=== PATIENT | female | born 1955 | race Caucasian/White ===

== ENCOUNTER 2017-08-22 10:42 | Emergency (ER) | payer MEDICARE, OTHER ==
--- NOTE | 2017-08-22 11:12 | ED ---
Head Injury - HPI Summary HPI Summary: A 61 y/o female presents to ED s/p head injury. Additionally c/o left shoulder pain (black and blue color) and laceration on head. According to the patient, she was in bed when she got up to grab her phone. She accidentally tripped over her dog and hit her head on the bench of the bed. She denies any LOC or abdominal pain, however has a severe headache. Upon arrival to ED, the headache reached 6/10 in severity, however is creeping up to a 8-9/10. The headache is "pretty much all over", especially on the frontal top and back area. She noted that she is on no blood thinners, but is known to bleed a lot due to undergoing radiation and chemotherapy. It was emphasized that the incident was purely a trip, not a fall from a faint. The patient has a hard time walking. As per triage, "Pt didn't want to drive while bleeding all over. Called daughter this morning do to nausea and severe head pain. Every time pt gets up nausea and light gets worse. Pt states blurred vision as well. Called daughter at 0846 today to report the fall". PMHx of lymphoma, high blood pressure, DM (however, under control) and cellulitis. The patient took a couple Advil CROP PULLER. - History Of Current Complaint Chief Complaint: EDHeadInjury Stated Complaint: FALL/HEAD LAC Time Seen by Provider: 08/22/17 10:52 Hx Obtained From: Patient Mechanism Of Injury: Other - Tripped over dog, hit head on bench of bed. Onset/Duration: Started Hours Ago, Still Present, Worse Since - Earlier today Onset of Pain: Immediate Severity Currently: Moderate - 8/10, was 6/10 upon arrival Severity Initially: Severe Pain Intensity: 8 Pain Scale Used: 0-10 Numeric Location of Head Injury: Frontal - Frontal and top, Occipital - Back area Aggravating Factor(s): Other: - Light makes worse as per triage Alleviating Factor(s): Other: - NOTHING Associated Signs And Symptoms: Nausea - As per triage, Headache - 8/10, Visual Changes - Blurred vision as per triage - Allergies/Home Medications Allergies/Adverse Reactions: Allergies Allergy/AdvReac Type Severity Reaction Status Date / Time cortisone Allergy Severe Difficulty Verified 08/22/17 11:07 Breathing Home Medications: Home Medications Chlorthalidone 25 mg PO DAILY 08/22/17 [History Confirmed 08/22/17] Pantoprazole Sodium [Protonix] 40 mg PO DAILY 08/22/17 [History Confirmed ] PMH/Surg Hx/FS Hx/Imm Hx Endocrine/Hematology History: Reports: Hx Anticoagulant Therapy, Hx Diabetes Denies: Hx Systemic Lupus Erythematosus Cardiovascular History: Reports: Hx Hypertension Denies: Hx Congestive Heart Failure Respiratory History: Reports: Hx Asthma, Hx Sleep Apnea - new DX 09/2012 GI History: Reports: Hx Gastroesophageal Reflux Disease, Other GI Disorders - hep c History: Denies: Hx Acute Renal Failure, Hx Dialysis, Hx Renal Disease Musculoskeletal History: Reports: Hx Arthritis, Hx Rheumatoid Arthritis, Hx Back Problems Denies: Hx Osteoporosis Sensory History: Reports: Hx Contacts or Glasses - READNG Opthamlomology History: Reports: Hx Contacts or Glasses - READNG Psychiatric History: Reports: Hx Anxiety - WITH PAIN - Cancer History Cancer Type, Location and Year: lymphoma Hx Chemotherapy: Yes - LYMPHOMA Hx Radiation Therapy: Yes - LYMPHOMA to sternum 2014 - Surgical History Surgery Procedure, Year, and Place: tubal, cyst removed L breast Hx Anesthesia Reactions: No Infectious Disease History: No Infectious Disease History: Denies: Traveled Outside the [place] in Last 30 Days - Family History Known Family History: Positive: Hypertension, Diabetes, Other - Lung cancer ( mother and brother) and bone cancer (father) - Social History Alcohol Use: Daily Substance Use Type: Reports: None Smoking Status (MU): Former Smoker Type: Cigarettes Review of Systems Negative: Fever Positive: Photophobia, Blurred Vision Positive: Nausea. Negative: Abdominal Pain Positive: Headache - 8/10. Negative: Syncope All Other Systems Reviewed And Are Negative: Yes Physical Exam - Summary Physical Exam Summary: GENERAL: Patient is a well developed and nourished female who is lying comfortable in the stretcher. Patient is not in any acute respiratory distress. HEAD AND FACE: Normocephalic. Superficial laceration in occipital area EYES: PERRLA, EOMI x 2. EARS: Hearing grossly intact. MOUTH: Oropharynx within normal limits. NECK: Supple, trachea is midline, no adenopathy, no JVD, no carotid bruit. CHEST: Symmetric, no tenderness at palpation LUNGS: Clear to auscultation bilaterally. No wheezing or crackles. CVS: Regular rate and rhythm, S1 and S2 present, no murmurs or gallops appreciated. ABDOMEN: Soft, non-tender. Bowel sounds are normal. No abdominal abnormal pulsations. EXTREMITIES: Full ROM in all major joints, no edema, no cyanosis or clubbing. NEURO: Alert and oriented x 3. No acute neurological deficits. Speech is normal and follows commands. SKIN: Dry and warm. Superficial laceration in occipital area. Abrasion on left shoulder GCS: 15 Triage Information Reviewed: Yes Vital Signs On Initial Exam: Initial Vitals Temp Pulse Resp BP Pulse Ox 98.2 F 69 18 164/101 97 08/22/17 10:46 08/22/17 10:46 08/22/17 10:46 08/22/17 10:46 08/22/17 10:46 Vital Signs Reviewed: Yes Diagnostics - Vital Signs Vital Signs Temp Pulse Resp BP Pulse Ox 08/22/17 10:46 98.2 F 69 18 164/101 97 - Laboratory Lab Statement: Any lab studies that have been ordered have been reviewed, and results considered in the medical decision making process. - Radiology SHOULDER XR Radiology Interpretation Completed By: Radiologist - DEGENERATIVE CHANGES WITHOUT RADIOGRAPHICALLY APPARENT ACUTE FRACTURE OR DISLOCATION. If the patient' s symptoms persist, follow-up imaging is recommended. ED physician reviewed this radiology report. - CT BRAIN CT CT Interpretation: No Acute Changes CT Interpretation Completed By: Radiologist - No acute intracranial abnormality. ED physician reviewed this radiology report. Head Injury Course/Dx Course Of Treatment: A 61 y/o female presents to ED s/p head injury. Additionally c/o left shoulder pain (black and blue color) and laceration on head. According to the patient, she was in bed when she got up to grab her phone. She accidentally tripped over her dog and hit her head on the bench of the bed. She denies any LOC or abdominal pain, however has a severe headache. A shoulder XR revealed degenerative changes without radiographically apparent acute fracture or dislocation. A Brain CT revealed no acute intracranial abnormality. In the ED course, patient received Zofran and Percocet. Patient will be discharged with with a diagnosis of head injury. Patient is to follow up with PCP in 2-3 days. Pt is agreeable with this plan. - Diagnoses Provider Diagnoses: Head injury Discharge - Sign-Out/Discharge Documenting (check all that apply): Patient Departure - DISCHARGE - Discharge Plan Condition: Stable Disposition: HOME Patient Education Materials: Head Injury (ED) Referrals: Gris Carvajal MD [Primary Care Provider] - 2 Days (Follow up with PCP in 2- 3 days.) Additional Instructions: RETURN TO ED FOR ANY NEW OR WORSENING SYMPTOMS. - Billing Disposition and Condition Condition: STABLE Disposition: Home
[2017-08-22] MEDS ORDERED: oxyCODONE/Acetamin 5/325 MG* TAB PO ONE (11:20)
--- NOTE | 2017-08-22 11:55 | RAD ---
INDICATION: Left shoulder pain after a fall the previous night COMPARISON: None. TECHNIQUE: 4 views of the left shoulder were obtained. FINDINGS: The adequately corticated bones are in normal alignment. Joint spaces appear maintained. Degenerative changes include osteophyte formation along the inferior margin of the glenohumeral joint. No fracture, dislocation or focal bony abnormality is seen. IMPRESSION: DEGENERATIVE CHANGES WITHOUT RADIOGRAPHICALLY APPARENT ACUTE FRACTURE OR DISLOCATION. If the patient's symptoms persist, follow-up imaging is recommended.
--- NOTE | 2017-08-22 12:03 | RAD ---
INDICATION: Nausea, blurred vision and feeling lightheaded after head trauma COMPARISON: CT of the brain dated August 29, 2013 TECHNIQUE: Contiguous axial sections of the brain were obtained from the skull base to the vertex without contrast. FINDINGS: The ventricles, cisterns and sulci are within normal limits. The hinojosa-white matter differentiation is adequately maintained and there is no sulcal effacement. No significant focal abnormality or mass effect is present. There is no evidence for intracranial hemorrhage. No significant focal osseous abnormality is present. Incidentally noted is a mild degree of hyperostosis frontalis interna. The visualized portion of the paranasal sinuses appear clear. The mastoid air cells are well aerated bilaterally. IMPRESSION: No acute intracranial abnormality.
[2017-08-22 12:24] VITALS: BP 144/83
[2017-08-22] MEDS ORDERED: Ondansetron ODT TAB* 4 MG SL ONE (12:32)
== END 2017-08-22 12:50 | disposition home or self-care (01) ==
LOC: ED 10:42
DX: S09.90XA Unspecified injury of head, initial encounter (principal); S01.01XA Laceration without foreign body of scalp, initial encounter; S40.212A Abrasion of left shoulder, initial encounter; W01.198A Fall on same level from slipping, tripping and stumbling with subsequent striking against other object, initial encounter; Y93.9 Activity, unspecified; Y92.003 Bedroom of unspecified non-institutional (private) residence as the place of occurrence of the external cause; M19.012 Primary osteoarthritis, left shoulder; R11.0 Nausea; E11.9 Type 2 diabetes mellitus without complications; Z79.01 Long term (current) use of anticoagulants; I10 Essential (primary) hypertension; J45.909 Unspecified asthma, uncomplicated; G47.30 Sleep apnea, unspecified; K21.9 Gastro-esophageal reflux disease without esophagitis; M06.9 Rheumatoid arthritis, unspecified; F41.9 Anxiety disorder, unspecified; Z85.72 Personal history of non-Hodgkin lymphomas; Z88.8 Allergy status to other drugs, medicaments and biological substances; Z82.49 Family history of ischemic heart disease and other diseases of the circulatory system; Z83.3 Family history of diabetes mellitus; Z80.1 Family history of malignant neoplasm of trachea, bronchus and lung; Z80.8 Family history of malignant neoplasm of other organs or systems; Z87.891 Personal history of nicotine dependence
CPT/HCPCS: 70450; 99282; A9270-GY

== ENCOUNTER → 2017-12-12 20:11 | Emergency (ER) | payer MEDICARE, OTHER ==
[2017-12-12 20:20] VITALS: BP 164/105
== END | disposition left against medical advice (07) ==
LOC: ED 20:11
DX: R10.9 Unspecified abdominal pain (principal); Z53.21 Procedure and treatment not carried out due to patient leaving prior to being seen by health care provider

== ENCOUNTER 2018-03-11 16:59 | Emergency (ER) | payer MEDICARE, OTHER ==
[2018-03-11] MEDS ORDERED: LORazepam INJ* 2 MG/ML 1 ML VIAL ONE (17:13)
[2018-03-11] MEDS ORDERED: LORazepam INJ* 2 MG/ML 1 ML VIAL IV PUSH ONE (17:14)
[2018-03-11] MEDS ORDERED: HYDROmorphone INJ* 1 MG/ML CARPUJECT SYRINGE IV SLOW PU ONE (17:14)
[2018-03-11] MEDS ORDERED: HYDROmorphone INJ1* 1 MG/ML SYRINGE ONE (17:14)
[2018-03-11] MEDS ORDERED: NS 0.9% 1000 ML** 1,000 ML IV ONE ×2 (17:14→19:24)
--- NOTE | 2018-03-11 17:39 | ED ---
Abdominal Pain/Female - HPI Summary HPI Summary: A 62 y/o female presents to [facility] with a chief complaint of abdominal pain since 10:00 03/11/18. She denies fever, chills, erythema (eyes), sore throat, chest pain, shortness of breath, cough, vomiting, nausea, dysuria, hematuria , myalgia, edema, rash and dizziness. She claims that she has been unable to urinate or have a BM. Per triage note, "Pt c/o sudden oset of abdominal pain at 1000 this morning got worse throughout the day, not unbearable ..pt is screaming in triage. thet pain radiates to her right flank. " At triage she rated her pain as a 10/10 in severity. She was diagnosed with cancer 5 years ago. She denies any falls or trauma. She denies a Hx of aneurysms of FHx of aneurysms. Dr. Carvajal is her PCP. - History of Current Complaint Chief Complaint: EDAbdPain Stated Complaint: SEVERE ABD PAIN Hx Obtained From: Patient, Family/[employer]der [employer] Onset/Duration: Sudden Onset, Lasting Hours, Still Present Timing: Hours Severity Initially: Severe Severity Currently: Severe Pain Intensity: 10 Pain Scale Used: 0-10 Numeric Location: Diffuse Radiates: No Character: Sharp Aggravating Factor(s): Nothing Alleviating Factor(s): Nothing Associated Signs and Symptoms: Positive: Other:. Negative: Fever, Cough, Chest Pain, Dizzy, Nausea, Vomiting - Positive: unable to urinate or have a BM Allergies/Adverse Reactions: Allergies Allergy/AdvReac Type Severity Reaction Status Date / Time cortisone Allergy Severe Difficulty Verified 03/11/18 17:15 Breathing PMH/Surg Hx/FS Hx/Imm Hx Endocrine/Hematology History: Reports: Hx Anticoagulant Therapy, Hx Diabetes Denies: Hx Systemic Lupus Erythematosus Cardiovascular History: Reports: Hx Hypertension Denies: Hx Congestive Heart Failure Respiratory History: Reports: Hx Asthma, Hx Sleep Apnea - new DX 09/2012 GI History: Reports: Hx Gastroesophageal Reflux Disease, Other GI Disorders - hep c History: Denies: Hx Acute Renal Failure, Hx Dialysis, Hx Renal Disease Musculoskeletal History: Reports: Hx Arthritis, Hx Rheumatoid Arthritis, Hx Back Problems Denies: Hx Osteoporosis Sensory History: Reports: Hx Contacts or Glasses - READNG Opthamlomology History: Reports: Hx Contacts or Glasses - READNG Psychiatric History: Reports: Hx Anxiety - WITH PAIN - Cancer History Cancer Type, Location and Year: lymphoma Hx Chemotherapy: Yes - LYMPHOMA Hx Radiation Therapy: Yes - LYMPHOMA to sternum 2014 - Surgical History Surgery Procedure, Year, and Place: tubal, cyst removed L breast Hx Anesthesia Reactions: No Infectious Disease History: No Infectious Disease History: Denies: Traveled Outside the [place] in Last 30 Days - Family History Known Family History: Positive: Hypertension, Diabetes, Other - Lung cancer ( mother and brother) and bone cancer (father) - Social History Alcohol Use: Daily Substance Use Type: Reports: None Smoking Status (MU): Former Smoker Type: Cigarettes Review of Systems Negative: Fever, Chills Negative: Erythema Negative: Sore Throat Negative: Chest Pain Negative: Shortness Of Breath, Cough Positive: Abdominal Pain, Other - Positive: unable to urinate or have a BM. Negative: Vomiting, Nausea Negative: dysuria, hematuria Negative: Myalgia, Edema Negative: Rash Neurological: Negative - dizziness All Other Systems Reviewed And Are Negative: Yes Physical Exam - Summary Physical Exam Summary: Constitutional: Well-developed, Well-nourished, Alert. (-) Distressed Skin: Warm, Dry HENT: Normocephalic; Atraumatic Eyes: Conjunctiva normal Neck: Musculoskeletal ROM normal neck. (-) JVD, (-) Stridor, (-) Tracheal deviation Cardio: Rhythm regular, rate normal, Heart sounds normal; Intact distal pulses; The pedal pulses are 2+ and symmetric. Radial pulses are 2+ and symmetric. (-) Murmur Pulmonary/Chest wall: Effort normal. (-) Respiratory distress, (-) Wheezes, (-) Rales Abd: no CVA tenderness, diffuse abdominal tenderness, obese abdomen. Soft, (-) Distension, (-) Guarding, (-) Rebound Musculoskeletal: (-) Edema Lymph: (-) Cervical adenopathy Neuro: Alert, Oriented x3 Psych: Mood and affect Normal Triage Information Reviewed: Yes Vital Signs On Initial Exam: Initial Vitals Temp Pulse Resp BP Pulse Ox 98 F 71 24 168/85 98 03/11/18 17:11 03/11/18 17:11 03/11/18 17:11 03/11/18 17:11 03/11/18 17:11 Vital Signs Reviewed: Yes Diagnostics - Vital Signs Vital Signs Temp Pulse Resp BP Pulse Ox 03/11/18 17:17 20 03/11/18 17:11 98 F 71 24 168/85 98 - Laboratory Result Diagrams: 03/11/18 17:30 03/11/18 17:30 Lab Statement: Any lab studies that have been ordered have been reviewed, and results considered in the medical decision making process. - CT abdomen/pelvis CT Interpretation Completed By: Radiologist Summary of CT Findings: 1. There may be a small hiatal hernia. 2. The appendix is unremarkable. 3. There is mild colonic diverticulosis without evidence for acute. diverticulitis. 4. There is an umbilical hernia with hernia sac measuring 3.1 cm diameter which. contains a short segment of small bowel as well as fluid in the hernia sac but. no resulting small bowel obstruction therefore findings are not specific for. incarcerated hernia. 5. No visible renal, ureteral or bladder calculi. ED physician has reviewed this imaging report. - EKG 17:16 Cardiac Rate: NL - 64 bpm EKG Rhythm: Sinus Rhythm Summary of EKG Findings: Normal sinus rhythm at 64 bpm. No STEMI. Re-Evaluation - Re-Evaluation First Eval Re-Evaluation Time: 18:58 Change: Improved Comment: Her pain is now reduced to 2/10. I Palpated her hernia and her pain is now midline and periumbilical. She has had pain half a dozen times in the past month. This is most likely due to a recurring hernia. Second Eval Re-Evaluation Time: 21:00 Change: Improved Comment: patient is ready for discharge. Abdominal Pain Fem Course/Dx - Course Course Of Treatment: A 62 y/o female presents to [facility] with a chief complaint of abdominal pain since 10:00 03/11/18. The physical exam showed no CVA tenderness, but she had diffuse abdominal tenderness and an obese abdomen. EKG at 17:16 revealed normal sinus rhythm at [address] abdomen/pelvis impression: 1. There may be a small hiatal hernia. 2. The appendix is unremarkable. 3. There is mild colonic diverticulosis without evidence for acute. diverticulitis. 4. There is an umbilical hernia with hernia sac measuring 3.1 cm diameter which. contains a short segment of small bowel as well as fluid in the hernia sac but. no resulting small bowel obstruction therefore findings are not specific for. incarcerated hernia. 5. No visible renal, ureteral or bladder calculi. Upon re-eval, her pain is now reduced to 2/10. I Palpated her hernia and her pain is now midline and periumbilical. She has had pain half a dozen times in the past month. This is most likely due to a recurring hernia. Lab results obtained. Trace urine ketones. In the ED course the patient was given Zofran IV, Reglan IV, Ativan IV and Dilaudid IV. The patient will be discharged with a prescription for [place] and Zofran. She was instructed to follow up with Dr. Russell. She is agreeable with this plan. - Diagnoses Provider Diagnoses: Umbilical hernia, Abdominal pain Discharge - Sign-Out/Discharge Documenting (check all that apply): Patient Departure - DC Patient Received Moderate/Deep Sedation with Procedure: No - Discharge Plan Condition: Stable Disposition: HOME Prescriptions: HYDROcodone/ACETAMIN 5-325 MG* [[place] 5-325 TAB*] 1 tab PO Q6H PRN #10 tab MDD 4 PRN Reason: Pain Scale 6-10 Ondansetron ODT TAB* [Zofran 4 MG Odt TAB*] 4 mg PO Q8H PRN #12 tab.odt PRN Reason: Nausea/Vomiting Referrals: Gris Carvajal MD [Primary Care Provider] - Kishan Russell MD [Medical Doctor] - (3-5 days) Additional Instructions: Return to the ED if you experience any new or worsening symptoms. - Billing Disposition and Condition Condition: STABLE Disposition: Home - Attestation Statements Document Initiated by Filiberto: Yes Documenting Scribe: Martin Ojeda Provider For Whom Filiberto is Documenting (Include Credential): Yusef Mai MD Scribe Attestation: I, Martin Ojeda, scribed for Yusef Mai MD on 03/11/18 at 2223. Scribe Documentation Reviewed: Yes Provider Attestation: The documentation as recorded by the Martin mcdaniels accurately reflects the service I personally performed and the decisions made by me, Yusef Mai MD Status of Scribe Document: Viewed
[2018-03-11 17:40] LABS: ABS Basophils 0 10^3/ul (0-0.2); ABS Eosinophils 0 10^3/ul (0-0.6); ABS Monocytes 0.4 10^3/ul (0-0.8); ABS Neutrophils 5.6 10^3/ul (1.5-7.7); ABS Nucleated RBC 0 10^3/ul; Eosinophil % 0.4 %; Hematocrit 40 % (35-47); Hemoglobin 13.2 g/dl (12.0-16.0); Lymphocyte % 14.1 %; Mean Corpuscular HGB Conc 34 g/dl (31-36); Mean Corpuscular Hemoglobin 31 pg (27-31); Mean Corpuscular Volume 93 fL (80-97); Mean Platelet Volume 8.4 fL (7.4-10.4); Nucleated Red Blood Cells % 0; Platelet Count 146 10^3/ul (150-450); Red Blood Count 4.24 10^6/ul (4.00-5.40); Red Cell Distribution Width 13 % (10.5-15)
[2018-03-11] MEDS ORDERED: Ondansetron INJ* 2 MG/ML VIAL IV ONE (18:05)
[2018-03-11] MEDS ORDERED: Ondansetron INJ* 2 MG/ML VIAL ONE (18:07)
[2018-03-11 18:16] LABS: ALT 14 U/L (7-52); AST 12 U/L (13-39); Albumin 4.3 g/dL (3.2-5.2); Albumin/Globulin Ratio 1.5 (1-3); Alkaline Phosphatase 74 U/L (34-104); Anion Gap 7 mmol/L (2-11); BUN/Creatinine Ratio 17.3 (8-20); Blood Urea Nitrogen 14 mg/dL (6-24); C Reactive Protein 13.09 mg/L (<8.01); CO2 Carbon Dioxide 28 mmol/L (22-32); Calcium 9.6 mg/dL (8.6-10.3); Chloride 100 mmol/L (101-111); EGFR African American 86.4 (>60); EGFR Non-African American 71.4 (>60); Globulin 2.9 g/dL (2-4); Glucose 127 mg/dL (70-100); Potassium 4.3 mmol/L (3.5-5.0); Sodium 135 mmol/L (135-145); Total Protein 7.2 g/dL (6.4-8.9)
[2018-03-11 19:53] LABS: Urine Appearance Clear; Urine Bilirubin Negative (Negative); Urine Blood Negative (Negative); Urine Color Yellow; Urine Glucose Negative (Negative); Urine Ketones Trace (Negative); Urine Nitrite Negative (Negative); Urine Protein Negative (Negative); Urine Specific Gravity 1.013 (1.010-1.030); Urine Urobilinogen Negative (Negative)
[2018-03-11] MEDS ORDERED: Metoclopramide IV* 5 MG/ML 2 ML VIAL IV SLOW PU ONE (19:59)
[2018-03-11 21:29] VITALS: BP 133/68
== END 2018-03-11 21:27 | disposition home or self-care (01) ==
LOC: ED 16:59
DX: K42.9 Umbilical hernia without obstruction or gangrene (principal); R10.84 Generalized abdominal pain; K57.30 Diverticulosis of large intestine without perforation or abscess without bleeding; K57.32 Diverticulitis of large intestine without perforation or abscess without bleeding; Z79.01 Long term (current) use of anticoagulants; Z88.8 Allergy status to other drugs, medicaments and biological substances; Z87.891 Personal history of nicotine dependence
CPT/HCPCS: 36415; 74176; 80053; 81003; 83605; 83690; 85025; 86140; 93005; 96361; 96374; 96375; 99283; J1170; J2060; J2405; J2765

== ENCOUNTER 2018-04-12 14:00 | Day surgery (SDC) | payer MEDICARE, OTHER ==
--- NOTE | 2018-03-29 19:02 | HP ---
CC: Dr. Gris Carvajal * ADMISSION HISTORY AND PHYSICAL: DATE OF ADMISSION: 04/12/18 ATTENDING SURGEON: Dr. Kishan Russell.* (DICTATED BY DANNIE ERVIN) CHIEF COMPLAINT: Umbilical hernia. HISTORY OF PRESENT ILLNESS: This is a 62-year-old female who over the past 5 months has experienced 4 to 5 episodes of periumbilical pain. She describes it as being episodic, typically occurring in the morning and having a colicky nature like labor pain, though stronger. There would be radiation of pain to her back and in most cases, it would resolve within 4 to 5 hours. She did have 2 episodes that caused her to visit the ED. The first resolved prior to being seen. The second episode was more recent on 03/11/18. Evaluation included lab work, which was essentially normal and CT of the abdomen and pelvis. That study showed a possible small hiatal hernia and unremarkable appendix, mild colonic diverticulosis without evidence for diverticulitis. There was an umbilical hernia which contained a short segment of small bowel as well as fluid , though there was no specific finding of small bowel obstruction. This apparently improved and she was discharged and followed up for evaluation with Dr. Russell on 03/17/18. His exam at that time showed no visible hernia, though she does have a palpable reducible umbilical hernia which was minimally tender at that time. Dr. Russell has described to her the indications for hernia repair, the risks, benefits, and alternatives and she would like to proceed as scheduled with laparoscopic repair of umbilical hernia with mesh. PAST MEDICAL HISTORY: 1. Hypertension. 2. History of lymphoma (treated with no recurrent disease). 3. Morbid obesity. 4. Hepatitis C (treated with no evidence of recurrent disease). 5. GERD. 6. Lymphedema of the lower extremities (uses pumps on a p.r.n. basis). 7. Reactive airway disease. PAST SURGICAL HISTORY: Include: 1. Bilateral total knee arthroplasty. 2. Bilateral carpal tunnel release. 3. Left breast biopsy for benign disease. 4. Left inguinal lymph node biopsy. 5. Mediport placement and subsequent removal. CURRENT MEDICATIONS: 1. Amlodipine 2.5 mg once daily. 2. Chlorthalidone 25 mg once daily. 3. Metronidazole gel 0.75% b.i.d. p.r.n. for rosacea. 4. Pantoprazole 40 mg once daily. 5. Multivitamin once daily. 6. Ipratropium. 7. Albuterol MDI and nebulizer p.r.n. DRUG ALLERGIES: CORTISONE (mouth swelling), VALSARTAN per her PCP record anaphylaxis, AMLODIPINE (increased peripheral edema); she is currently taking a smaller dose which she tolerates. FAMILY HISTORY: Negative for anesthesia problems or bleeding disorders. Her mother did suffer from DVT and of a PE. No additional family history of VTE. SOCIAL HISTORY: The patient is . She also has a grandson who lives with them. 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 She denies use of tobacco. She drinks up to 6 beers or 2 to 3 drinks up to 2 to 3 times per week. She occasionally smokes marijuana but not daily. REVIEW OF SYSTEMS: General: No recent constitutional symptoms or acute illnesses. Her weight has been stable. HEENT: No problems reported. Cardiovascular: No chest pain, palpitations, or heart murmur. She is treated for hypertension. Respiratory: No recent exacerbations of her reactive airway disease. No chronic cough. GI: No nausea or vomiting. See also above per HPI. Colonoscopy done within the past 5 to 10 years with no problems reported. : No problems reported. [employer]: She is up-to-date within the past year for breast exam and mammogram. She cannot recall her last Pap smear, but reports no problems. Hematological: She does report easy bruising and bleeding. She is unsure if she has ever had any workup done for that. She has never required blood transfusion. Endocrine: No diabetes or thyroid dysfunction. PHYSICAL EXAMINATION GENERAL: Well nourished, morbidly obese female, in no acute distress. VITAL SIGNS: Height 65 inches, weight 243 pounds, BMI 40. Blood pressure 126/ 82, pulse 64, respirations 18. HEENT: Pupils are equal, round, and reactive. EOMs intact. No conjunctival pallor. Oropharynx: She has few remaining lower teeth, otherwise has full upper and partial lower denture. No intraoral lesions. NECK: No lymphadenopathy, thyromegaly or masses. LUNGS: Clear to auscultation. No rales or wheezes. HEART: Regular rate and rhythm. No murmur appreciated. BREASTS: Not examined. ABDOMEN: Soft with palpable umbilical defect consistent with umbilical hernia. It is relatively nontender on today's exam. The remainder of the abdomen is soft, nontender, and without palpable masses or organomegaly. GENITALIA: Not done. RECTAL: Not done. BACK: No spinous process or CVA tenderness. EXTREMITIES: No edema. NEUROLOGICAL: Grossly intact. SKIN: Warm and dry. No suspicious rashes or lesions. IMPRESSION: Umbilical hernia. PLAN: Laparoscopic repair of umbilical hernia with mesh. DANNIE ERVIN [id number]/[facility] #: [id number] MTDD
[~2018-04-12 14:00] MED LIST: Buffered Lidocaine 1% SYRIN* 1 ML/SYRINGE INTRADERM ONE; Famotidine IV* 10 MG/ML 2 ML (20 mg) IV ONE; Lactated Ringers 1000 ML Bag* 1,000 ML IV SCH
[2018-04-12] MEDS ORDERED: fentaNYL* 50 MCG/ML 2 ML VIAL (100 MCG VIAL) ONE ×2 (14:21→17:01)
[2018-04-12] MEDS ORDERED: ceFAZolin 2 GM PREMIX in ORs 2 GM/50 ML BAG IVPB ONE (14:22)
[2018-04-12] MEDS ORDERED: Midazolam* 1 MG/ML 5 ML VIAL (5 MG) ONE (14:22)
[2018-04-12] MEDS ORDERED: Ondansetron INJ* 2 MG/ML VIAL ONE (14:23)
[2018-04-12] MEDS ORDERED: Propofol* 10 MG/ML 20 ML BTL ONE (14:23)
[2018-04-12] MEDS ORDERED: Dexamethasone IV* 4 MG/ML 1 ML (4 MG) ONE (14:23)
[2018-04-12] MEDS ORDERED: Buffered Lidocaine 1% SYRIN* 1 ML/SYRINGE INTRADERM ONE (14:23)
[2018-04-12] MEDS ORDERED: Famotidine IV* 10 MG/ML 2 ML (20 mg) ONE (14:23)
[2018-04-12] MEDS ORDERED: Ketorolac INJ* 30 MG/ML 1 ML VIAL ONE (14:23)
[2018-04-12] MEDS ORDERED: Lidocaine 2% PF * 5 ML VIAL ONE (14:23)
[2018-04-12] MEDS ORDERED: DiMENhydriNATE IV* 50 MG/ML VIAL ONE ×2 (14:23→18:02)
[2018-04-12] MEDS ORDERED: Succinylcholine* 20 MG/ML 10 ML VIAL ONE (14:23)
[2018-04-12] MEDS ORDERED: Bupivacaine 0.25% W/EPI* 10 ML SDV ONE ×2 (16:00)
[2018-04-12] MEDS ORDERED: Rocuronium* 10 MG/ML VIAL ONE (16:29)
[2018-04-12] MEDS ORDERED: HYDROmorphone INJ1* 1 MG/ML SYRINGE IV PRN (17:11)
[2018-04-12] MEDS ORDERED: Naloxone* 0.4 MG/ML 1 ML VIAL IV PRN (17:11)
[2018-04-12] MEDS ORDERED: Acetaminophen TAB* 325 MG PO PRN (17:11)
[2018-04-12] MEDS ORDERED: oxyCODONE TAB* 5 MG TAB PO PRN (17:11)
[2018-04-12] MEDS ORDERED: DiMENhydriNATE IV* 50 MG/ML VIAL IV PUSH PRN (17:11)
[2018-04-12] MEDS ORDERED: Glycopyrrolate IV* 0.2 MG/ML 1 ML VIAL ONE (17:31)
[2018-04-12] MEDS ORDERED: Neostigmine Methylsulfate* 1 MG/ML 10 ML VIAL (1 mg/ml) ONE (17:31)
[2018-04-12] MEDS ORDERED: Ondansetron ODT TAB* 4 MG PO PRN (17:46)
[2018-04-12] MEDS ORDERED: HYDROcodone/ACETAMIN 5-325 MG* 1 TAB PO PRN (17:46)
[2018-04-12] MEDS ORDERED: oxyCODONE TAB* 5 MG TAB ONE (18:02)
[2018-04-12] MEDS ORDERED: Acetaminophen TAB* 325 MG ONE (18:02)
[2018-04-12] MEDS ORDERED: HYDROmorphone INJ1* 1 MG/ML SYRINGE ONE (18:54)
[2018-04-12 19:56] VITALS: BP 155/85
--- NOTE | 2018-04-13 03:38 | OP ---
CC: Gris Carvajal MD * DATE OF OPERATION: 04/12/18 - SDS DATE OF : 53 SURGEON: Dr. Russell. BULK RECEIVER: Domenica Pena NP ANESTHESIOLOGIST: Edith Kincaid MD ANESTHESIA: General endotracheal. PRE-OP DIAGNOSIS: Umbilical hernia. POST-OP DIAGNOSIS: Umbilical hernia. OPERATIVE PROCEDURE: Laparoscopic repair, umbilical hernia, with mesh. ESTIMATED BLOOD LOSS: Minimal. IV FLUIDS: Crystalloids. SPECIMENS: None. DRAINS: None. COMPLICATIONS: None. COUNTS: The instrument, needle, and sponge counts were correct. DESCRIPTION OF PROCEDURE: The patient was brought to the operating room, placed on the table supine. Sequential compression devices were placed on both lower extremities. General anesthesia was administered. The abdomen was prepped and draped in the usual sterile fashion. She received appropriate intravenous antibiotics. Her left arm was tucked to the side. After she was prepped and draped in the usual sterile fashion, a time-out was performed. Local anesthetic was infiltrated into the skin and soft tissues prior to making each incision. Entry into the abdomen was through a left upper quadrant incision accommodating a 5-mm optical trocar. After accessing the peritoneal cavity, carbon dioxide was insufflated to a pressure of 15 mmHg. Under direct visualization, 5-mm trocars were placed in the left lower quadrant and the left lateral abdomen. This last trocar was eventually exchanged for an 11-mm trocar for the mesh placement. The inspection revealed a umbilical hernia defect that was approximately 2 to 3 cm. The peritoneum was taken down in a wide area surrounding the umbilical hernia reducing the hernia sac. After completing a wide dissection of the peritoneum, a Ventralight ST mesh 4 x 6 inch oval patch was placed into the peritoneal cavity and this was positioned with the ECHO Positioning System over the area of the defect. The CapSure tacker was used using a double-crown technique tacking at 1 cm intervals circumferentially with additional tacks placed closer to the hernia defect. Lastly, the peritoneum was reapproximated to the anterior abdominal wall using a series of the same tacks. The 11-mm port site was closed using 0 Vicryl with a suture passer. The ports were then removed under direct visualization and carbon dioxide was released from the abdomen. The incisions were all closed with 4-0 Monocryl in a subcuticular fashion and Steri-Strips and dressings were applied. The patient tolerated the procedure well. She was extubated and transferred to recovery room in stable condition. [id number]/[facility] #: [id number]
[2018-04-13] MEDS ORDERED: NON FORMULARY MED* (Multivitamin [Multivitamins] 1 CAP) PO SCH (09:00)
[2018-04-13] MEDS ORDERED: NON FORMULARY MED* (Chlorthalidone [Chlorthalidone] 25 MG) PO SCH (09:00)
[2018-04-13] MEDS ORDERED: AMLODIPINE 2.5 MG TAB (NF) PO SCH (09:00)
== END 2018-04-12 19:45 | disposition home or self-care (01) ==
LOC: OR 14:00
PROVIDERS: ATTEND Surgery
DX: K42.9 Umbilical hernia without obstruction or gangrene (principal); E11.9 Type 2 diabetes mellitus without complications; E66.01 Morbid (severe) obesity due to excess calories; I10 Essential (primary) hypertension; Z85.72 Personal history of non-Hodgkin lymphomas; K21.9 Gastro-esophageal reflux disease without esophagitis; I89.0 Lymphedema, not elsewhere classified; J45.909 Unspecified asthma, uncomplicated; G47.33 Obstructive sleep apnea (adult) (pediatric)
CPT/HCPCS: A9270-GY; C1781; J0330; J0690; J1100; J1170; J1240; J1885; J2250; J2405; J2704; J2710; J3010